=== PATIENT | female | born 1980 | race Caucasian/White ===

== ENCOUNTER 2017-04-17 08:42 | Emergency (ER) | payer OTHER ==
[~2017-04-17] VITALS: Ht 162.6 cm; Wt 104.0 kg
[~2017-04-17 08:42] MED LIST: BEN25 PO; CALC-67 PO; FER325 PO; FOLI0.4T2 PO; PRED20TA PO; PRENAT PO; TRIA15CR55 TOP
[2017-04-17 08:45] VITALS: Ht 162.6 cm; Wt 104.0 kg
[2017-04-17] MEDS ORDERED: ONDANSETRON (ODT) 4 MG TAB ODT STA (09:05)
[2017-04-17] MEDS ORDERED: FAMOTIDINE 20 MG TAB PO ONE (09:30)
[2017-04-17 09:34] LABS: BASOPHIL # 0.1 10^3/ul (0.0-0.1); BASOPHILS % 0.7 % (0.0-2.0); EOSINOPHILS # 0.1 10^3/ul (0.0-0.5); EOSINOPHILS % 1.9 % (0.0-7.0); HEMATOCRIT 35.8 % (37.0-47.0); LYMPHOCYTES % 26.7 % (15.0-51.0); MEAN CORPUSCULAR HEMOGLOBIN 30.2 pg (29.0-33.0); MEAN CORPUSCULAR HGB CONC 33.5 g/dl (32.0-37.0); MEAN CORPUSCULAR VOLUME 90.2 fl (82.0-101.0); MEAN PLATELET VOLUME 9.8 fl (7.4-10.4); MONOCYTE # 0.5 10^3/ul (0.3-0.9); MONOCYTES % 6.1 % (0.0-11.0); NEUTROPHILS % 64.3 % (39.0-77.0); PLATELET COUNT 275 10^3/UL (140-415); RED BLOOD COUNT 3.97 10^6/ul (4.20-5.40); RED CELL DISTRIBUTION WIDTH 11.9 % (11.5-14.5); WHITE BLOOD COUNT 7.3 10^3/ul (4.8-10.8)
--- NOTE | 2017-04-17 09:40 | ERD ---
ER Documentation Chief Complaint Date/Time DATE: 04/17/17 TIME: 09:38 Chief Complaint abd pain , positive preg test @ home , lmp 01/15/17 HPI 36-year-old female with a history one miscarriage and one with last measured. Around January 15 comes in with epigastric abdominal pain, nausea over the last 2 days. She describes it as mostly upper abdominal discomfort that radiates diffusely on the left and right. She has an appointment to see her OB who is Dr. Corley on April 29, 2017 and has not had an ultrasound yet. Patient has not had any vaginal bleeding or pelvic pain. She denies fevers, chills, chest pain or shortness of breath. ROS All systems reviewed and are negative except as per history of present illness. Medications Home Meds Active Scripts Multivit/Min/Fol Ac/Iron/Pren* ( S*) 1 Tab Tab, 1 TAB PO DAILY, #30 TAB Prov:DEV PHILLIPS PA-C 04/17/17 Famotidine* (Pepcid*) 20 Mg Tablet, 20 MG PO BID for 15 Days, TAB Prov:DEV PHILLIPS PA-C 04/17/17 Nitrofurantoin Monohyd Macrocr* (Macrobid*) 100 Mg Capsr, 100 MG PO BID for 7 Days, CAP Prov:DEV PHILLIPS PA-C 04/17/17 Diphenhydramine Hcl* (Benadryl*) 25 Mg Cap, 25 MG PO Q6, #20 CAP Prov:CHERRI CHAUDHARY MD 03/17/16 Prednisone* (Prednisone*) 20 Mg Tab, 40 MG PO DAILY, #4 TAB Prov:CHERRI CHAUDHARY MD 03/17/16 Triamcinolone Acetonide (Triamcinolone Acetonide) 0.1% - 15 Gm Cream.gm., 1 APPLIC TOP QID for 7 Days, #1 TUB Prov:CHERRI CHAUDHARY MD 03/17/16 Reported Medications Calcium Carbonate-Vitamin D3 (Calcium 500 + D Caplet) 1 Tab Tablet, 1 TAB PO DAILY, TAB 10/25/15 Folic Acid* (Folic Acid*) 0.4 Mg Tablet, 0.4 MG PO DAILY, TAB 12/26/14 Ferrous Sulfate* (Ferrous Sulfate*) 325 Mg Tabec, 325 MG PO BID, TAB 12/12/14 Multivit/Min/Fol Ac/Iron/Pren* ( S*) 1 Tab Tab, 1 TAB PO DAILY, TAB 10/29/14 Allergies Allergies: Coded Allergies: No Known Allergies (Verified Allergy, Mild, 12/26/14) PMhx/Soc Anesthesia Reaction: No Hx Neurological Disorder: No Hx Respiratory Disorders: Yes (ASTHMA) Hx Cardiac Disorders: No Hx Psychiatric Problems: No Hx Miscellaneous Medical Probl: No Hx Alcohol Use: No Hx Substance Use: No Hx Tobacco Use: No Physical Exam Vitals Vital Signs Date Time Temp Pulse Resp B/P Pulse Ox O2 Delivery O2 Flow Rate FiO2 04/17/17 11:01 98.3 76 16 126/74 99 Room Air 04/17/17 08:45 98.1 88 18 121/71 99 Physical Exam General obese female, no distress HEENT: Head is normocephalic, atraumatic. No scleral icterus. Neck: Supple. Nontender. Lungs: Clear to auscultation. Normal air movement. Heart: Regular rate and rhythm. S1 and S2 are normal. No murmurs, gallops, or rubs. Abdomen: Soft, mild mid abdominal discomfort with palpation, nondistended. Bowel sounds are normoactive. No rebounding, guarding or masses there is no McBurney's tenderness negative Subramanian sign Extremities: No clubbing or cyanosis. Normal pulses. Moving extremities x 4. No weakness. Neurologic: Alert and oriented 3. No focal deficits. Skin: Normal turgor. No rash or lesions. Result Diagram: 04/17/1791604/17/17 0917 Results 24 hrs Laboratory Tests Test 04/17/17 09:09 04/17/17 09:17 Urine Color YELLOW Urine Clarity SLIGHTLY CLOUDY Urine pH 5.0 Urine Specific [place] 1.018 Urine Ketones NEGATIVEmg/dL Urine Nitrite POSITIVEmg/dL Urine Bilirubin NEGATIVEmg/dL Urine Urobilinogen NEGATIVEmg/dL Urine Leukocyte Esterase 1+Audrey/ul Urine Microscopic RBC 1/HPF Urine Microscopic WBC 6/HPF Urine Squamous Epithelial Cells FEW/HPF Urine Bacteria FEW/HPF Urine Mucus FEW/HPF Urine Hemoglobin NEGATIVEmg/dL Urine Glucose 3+mg/dL Urine Total Protein NEGATIVEmg/dl White Blood Count 7.310^3/ul Red Blood Count 3.9710^6/ul Hemoglobin 12.0g/dl Hematocrit 35.8% Mean Corpuscular Volume 90.2fl Mean Corpuscular Hemoglobin 30.2pg Mean Corpuscular Hemoglobin Concent 33.5g/dl Red Cell Distribution Width 11.9% Platelet Count 66149^3/UL Mean Platelet Volume 9.8fl Neutrophils % 64.3% Lymphocytes % 26.7% Monocytes % 6.1% Eosinophils % 1.9% Basophils % 0.7% Nucleated Red Blood Cells % 0.0/100WBC Neutrophils # (Manual) 510^3/ul Lymphocytes # 2.010^3/ul Monocytes # 0.510^3/ul Eosinophils # 0.110^3/ul Basophils # 0.110^3/ul Nucleated Red Blood Cells # 0.010^3/ul Sodium Level 136mmol/L Potassium Level 3.8mmol/L Chloride Level 102mmol/L Carbon Dioxide Level 23mmol/L Anion Gap 15 Blood Urea Nitrogen 9mg/dl Creatinine 0.59mg/dl Glucose Level 144mg/dl Calcium Level 9.4mg/dl Total Bilirubin 0.4mg/dl Direct Bilirubin 0.00mg/dl Indirect Bilirubin 0.4mg/dl Aspartate Amino Transf (AST/SGOT) 79IU/L Alanine Aminotransferase (ALT/SGPT) 109IU/L Alkaline Phosphatase 104IU/L Total Protein 7.8g/dl Albumin 4.0g/dl Globulin 3.80g/dl Albumin/Globulin Ratio 1.05 Lipase 85U/L Beta HCG, Quantitative 88866.0mIU/ml Current Medications Medications (Trade) Dose Ordered Sig/Deepak Route PRN Reason Start Time Stop Time Status Last Admin Dose Admin Famotidine (Pepcid) 20 mg ONCE ONCE PO 04/17/17 09:30 04/17/17 09:31 DC 04/17/17 09:16 Ondansetron HCl (Zofran Odt) 4 mg ONCE STAT ODT 04/17/17 09:05 04/17/17 09:07 DC 04/17/17 09:16 DIAGNOSTIC IMAGING REPORT Patient: JIMENA DUMONT : 1980 Age: 36 Sex: F MR #: [id number] DOS: 04/17/17 0903 Ordering MD: DEV PHILLIPS PA-C Location: E Room/Bed: PROCEDURE: OBSTETRICAL ULTRASOUND WITH ENDOVAGINAL IMAGES CLINICAL INDICATION: Abdominal pain TECHNIQUE: Multiple sonographic images of the pelvis were obtained utilizing a transabdominal and endovaginal technique. The images were reviewed on a PACS workstation. COMPARISON: None. LMP: 01/14/2017 FINDINGS: There is a single live intrauterine with heart rate of 158 beats per minute, mean sac diameter of 3.46 cm, and crown-rump length of 2.54 cm which is consistent with a gestational age of 9 weeks, 0 days . The estimated date of delivery by ultrasound is 11/20/2017 . The estimated gestational age by LMP is 13 weeks, 2 days . The estimated date of delivery by LMP is 10/21/2017 . There is a hypoechoic lesion adjacent to the gestational sac measuring up to 9 mm consistent with a subchorionic hemorrhage. The right ovary measures 3.5 x 1.9 x 2.6 cm. The left ovary measures 3.7 x 1.3 x 1.7 cm. There is normal vascular flow in both ovaries. No significant ovarian lesions are seen. No significant pelvic free fluid is identified. IMPRESSION: Single live intrauterine consistent with a gestational age of 9 weeks , 0 days . The estimated date of delivery is a 11/20/2017 . Dating by ultrasound is not consistent with dating by LMP. 9 mm subchorionic hemorrhage. RPTAT: EE Physician Willie Date Time Electronically viewed and signed by Physician Willie on 04/17/2017 09:55 RA/ CC: DEV PHILLIPS PA-C Procedures/MDM ED course: She was given Pepcid 20 mg by mouth and Zofran 4 mg ODT. MDM: 36-year-old female who is , patient is presenting with mid abdominal pain that goes to the epigastric region. She was given Pepcid and Zofran with improvement of her symptoms. She is currently at 13 weeks, single live intrauterine seen on ultrasound as well as a 9 mm and urinalysis shows nitrite positive urine given her should be given on antibiotics to treat her urinary tract infection. White blood cell count is normal, she does have mildly elevated AST and ALT it is likely from fatty liver disease, she states that she has been overweight and not eating a healthy diet. She does not have any Subramanian sign, and her other labs look normal, I doubt choledocholithiasis. She is otherwise well appearing, her abdominal examination is benign. She was advised to eat a low-fat diet, continue the antibiotics and recheck with her OB next week. Departure Diagnosis: Primary Impression: Second trimester Additional Impressions: Subchorionic hemorrhage in second trimester UTI (urinary tract infection) Condition: DEV Chin PA-C Apr 17, 2017 09:40
[2017-04-17 09:49] LABS: ADD UMIC YES; UR ASCORBIC ACID NEGATIVE (NEGATIVE); UR BACTERIA FEW /HPF (NONE SEEN); UR BILIRUBIN (Dip) NEGATIVE (NEGATIVE); UR BLOOD (Dip) NEGATIVE (NEGATIVE); UR CLARITY SLIGHTLY CLOUDY (CLEAR); UR COLOR YELLOW (YELLOW); UR GLUCOSE (Dip) 3+ mg/dL (NEGATIVE); UR KETONES (Dip) NEGATIVE (NEGATIVE); UR LEUKOCYTE ESTERASE (Dip) 1+ Leu/ul (NEGATIVE); UR MUCUS FEW /HPF (NONE SEEN); UR NITRITE (Dip) POSITIVE (NEGATIVE); UR RBC 1 /HPF (0-5); UR SPECIFIC GRAVITY (Dip) 1.018 (1.003-1.030); UR SQUAMOUS EPITHELIAL CELL FEW /HPF (FEW); UR TOTAL PROTEIN (Dip) NEGATIVE (NEGATIVE); UR UROBILINOGEN (Dip) NEGATIVE (NEGATIVE)
--- NOTE | 2017-04-17 09:55 | RADRPT ---
PROCEDURE: OBSTETRICAL ULTRASOUND WITH ENDOVAGINAL IMAGES CLINICAL INDICATION: Abdominal pain TECHNIQUE: Multiple sonographic images of the pelvis were obtained utilizing a transabdominal and endovaginal technique. The images were reviewed on a PACS workstation. COMPARISON: None. LMP: 01/14/2017 FINDINGS: There is a single live intrauterine with heart rate of 158 beats per minute, mean sa c diameter of 3.46 cm, and crown-rump length of 2.54 cm which is consistent with a gestational age of 9 weeks, 0 days . The estimated date of delivery by ultrasound is 11/20/2017 . The estimated gestational age by LMP is 13 weeks, 2 days . The estimated date of delivery by LMP is 10/21/2017 . There is a hypoechoic lesion adjacent to the gestational sac measuring up to 9 mm consistent with a subchorionic hemorrhage. The right ovary measures 3.5 x 1.9 x 2.6 cm. The left ovary measures 3.7 x 1.3 x 1.7 cm. There is no rmal vascular flow in both ovaries. No significant ovarian lesions are seen. No significant pelvic free fluid is identified. IMPRESSION: Single live intrauterine consistent with a gestational age of 9 weeks, 0 days . The estimated date of delivery is a 11/20/2017 . Dating by ultrasound is not consistent with dating by LMP. 9 mm subchorionic hemorrhage. RPTAT: EE Physician Willie Date Time Electronically viewed and signed by Physician Willie on 04/17/2017 09:55 /
[2017-04-17] MEDS ORDERED: FAMO-96 PO (10:04)
[2017-04-17] MEDS ORDERED: NITR-58 PO (10:04)
[2017-04-17 10:10] LABS: ALBUMIN/GLOBULIN RATIO 1.05; BILIRUBIN,INDIRECT 0.4 mg/dl (0-1.1); BILIRUBIN,TOTAL 0.4 mg/dl (0.2-1.3); CALCIUM 9.4 mg/dl (8.4-10.2); CREATININE 0.59 mg/dl (0.44-1.00); POTASSIUM 3.8 mmol/L (3.5-5.1); TOTAL PROTEIN 7.8 g/dl (6.1-8.1)
[2017-04-17] MEDS ORDERED: PRENAT PO (11:00)
[2017-04-17 11:01] VITALS: BP 126/74; PULSE 76; RESP 16; TEMP 98.3
== END 2017-04-17 11:02 | disposition home or self-care (01) ==
LOC: FTE 08:42
DX: O34.81 Maternal care for other abnormalities of pelvic organs, first trimester (principal); J45.909 Unspecified asthma, uncomplicated; R10.10 Upper abdominal pain, unspecified; O23.41 Unspecified infection of urinary tract in pregnancy, first trimester; O99.511 Diseases of the respiratory system complicating pregnancy, first trimester; R10.2 Pelvic and perineal pain; Z3A.09 9 weeks gestation of pregnancy
CPT/HCPCS: 36415; 76801; 80053; 81001; 83690; 84702; 85025; 86900; 86901; Z7502; Z7610

== ENCOUNTER 2017-04-25 10:12 | Emergency (ER) | payer OTHER ==
[~2017-04-25] VITALS: Ht 172.7 cm; Wt 102.5 kg
[~2017-04-25 10:12] MED LIST changes: +FAMO-96 PO; +NITR-58 PO
[2017-04-25 10:17] VITALS: Ht 172.7 cm; Wt 102.5 kg
[2017-04-25] MEDS ORDERED: ACETAMINOPHEN 325 MG TAB PO STA (11:15)
[2017-04-25 12:10] LABS: BASOPHILS % 0.5 % (0.0-2.0); EOSINOPHILS # 0.2 10^3/ul (0.0-0.5); EOSINOPHILS % 2.1 % (0.0-7.0); HEMOGLOBIN 11.2 g/dl (12.0-16.0); LYMPHOCYTES # 2.4 10^3/ul (0.8-2.9); LYMPHOCYTES % 28.3 % (15.0-51.0); MEAN CORPUSCULAR HEMOGLOBIN 29.5 pg (29.0-33.0); MEAN CORPUSCULAR HGB CONC 32.9 g/dl (32.0-37.0); MEAN CORPUSCULAR VOLUME 89.5 fl (82.0-101.0); MEAN PLATELET VOLUME 9.8 fl (7.4-10.4); MONOCYTE # 0.5 10^3/ul (0.3-0.9); MONOCYTES % 5.6 % (0.0-11.0); PLATELET COUNT 257 10^3/UL (140-415); RED CELL DISTRIBUTION WIDTH 12.3 % (11.5-14.5); WHITE BLOOD COUNT 8.6 10^3/ul (4.8-10.8)
[2017-04-25 12:14] LABS: ADD UMIC YES; UR ASCORBIC ACID 20 mg/dL (NEGATIVE); UR BACTERIA FEW /HPF (NONE SEEN); UR BILIRUBIN (Dip) NEGATIVE (NEGATIVE); UR BLOOD (Dip) 2+ mg/dL (NEGATIVE); UR CLARITY SLIGHTLY CLOUDY (CLEAR); UR COLOR AMBER (YELLOW); UR GLUCOSE (Dip) NEGATIVE (NEGATIVE); UR KETONES (Dip) TRACE mg/dL (NEGATIVE); UR LEUKOCYTE ESTERASE (Dip) NEGATIVE Leu/ul (NEGATIVE); UR MUCUS FEW /HPF (NONE SEEN); UR NITRITE (Dip) NEGATIVE (NEGATIVE); UR RBC 1 /HPF (0-5); UR SPECIFIC GRAVITY (Dip) 1.028 (1.003-1.030); UR SQUAMOUS EPITHELIAL CELL FEW /HPF (FEW); UR TOTAL PROTEIN (Dip) 1+ mg/dl (NEGATIVE); UR UROBILINOGEN (Dip) 1+ mg/dL (NEGATIVE)
--- NOTE | 2017-04-25 12:32 | RADRPT ---
PROCEDURE: US Obstetric less than 14 weeks. CLINICAL INDICATION: , vaginal bleeding TECHNIQUE: Transabdominal imaging of the pelvis was performed. Images are reviewed on a high-reso [employer] PACS workstation. COMPARISON: Ultrasound, 04/17/2017 FINDINGS: Single intrauterine gestation is identified. heart rate is 163 bpm. [place]-rump length = 3.07 cm. Gestational age is 10 weeks 0 days and MAURICE is 11/21/2017 by ultrasound criteria. Bilateral ovaries are not visualized. No adnexal mass or pelvic free fluid is seen. IMPRESSION: 1. Single live intrauterine with an estimated gestational age of 10 weeks 0 days by ultra sound criteria, as above. RPTAT: HDWR .Cesario Anderson MD, MD Date Time Electronically viewed and signed by .Cesario Anderson MD, on 04/25/2017 12:32 .R/
[2017-04-25 12:36] LABS: ALBUMIN 3.9 g/dl (3.3-4.9); BILIRUBIN,INDIRECT 1.1 mg/dl (0-1.1); BILIRUBIN,TOTAL 1.1 mg/dl (0.2-1.3); CREATININE 0.6 mg/dl (0.44-1.00); TOTAL PROTEIN 7.8 g/dl (6.1-8.1)
[2017-04-25 12:41] LABS: INR 0.92; PROTIME 12.4 Sec (12.2-14.2)
[2017-04-25 12:42] LABS: PARTIAL THROMBOPLASTIN TIME 27.1 Sec (25.0-35.0)
[2017-04-25] MEDS ORDERED: ACET325T33 PO (13:33)
--- NOTE | 2017-04-25 14:09 | ERA ---
ER Documentation Chief Complaint Date/Time DATE: 04/25/17 TIME: 13:59 Chief Complaint Complains of vag bleed and 12 weeks HPI 36-year-old female presented with a chief complaint of vaginal bleeding. Patient states that she is approximately 11 weeks . Denies pain, fever , dysuria, nausea, vomiting, diarrhea, vaginal discharge, foul odor, or identifiable patterns of symptoms. Patient has no other complaints and describes no other associated manifestations. Nursing notes have been reviewed and are consistent with history given. ROS All systems reviewed and are negative except as per history of present illness. Medications Home Meds Active Scripts Acetaminophen* (Tylenol*) 325 Mg Tablet, 1 TAB PO Q6 Y for PAIN AND OR ELEVATED TEMP, #20 TAB Prov:TORY JIMENEZ PA-C 04/25/17 Multivit/Min/Fol Ac/Iron/Pren* ( S*) 1 Tab Tab, 1 TAB PO DAILY, #30 TAB Prov:DEV PHILLIPS PA-C 04/17/17 Famotidine* (Pepcid*) 20 Mg Tablet, 20 MG PO BID for 15 Days, TAB Prov:DEV PHILLIPS PA-C 04/17/17 Nitrofurantoin Monohyd Macrocr* (Macrobid*) 100 Mg Capsr, 100 MG PO BID for 7 Days, CAP Prov:DEV PHILLIPS PA-C 04/17/17 Diphenhydramine Hcl* (Benadryl*) 25 Mg Cap, 25 MG PO Q6, #20 CAP Prov:CHERRI CHAUDHARY MD 03/17/16 Prednisone* (Prednisone*) 20 Mg Tab, 40 MG PO DAILY, #4 TAB Prov:CHERRI CHAUDHARY MD 03/17/16 Triamcinolone Acetonide (Triamcinolone Acetonide) 0.1% - 15 Gm Cream.gm., 1 APPLIC TOP QID for 7 Days, #1 TUB Prov:CHERRI CHAUDHARY MD 03/17/16 Reported Medications Calcium Carbonate-Vitamin D3 (Calcium 500 + D Caplet) 1 Tab Tablet, 1 TAB PO DAILY, TAB 10/25/15 Folic Acid* (Folic Acid*) 0.4 Mg Tablet, 0.4 MG PO DAILY, TAB 12/26/14 Ferrous Sulfate* (Ferrous Sulfate*) 325 Mg Tabec, 325 MG PO BID, TAB 12/12/14 Multivit/Min/Fol Ac/Iron/Pren* ( S*) 1 Tab Tab, 1 TAB PO DAILY, TAB 10/29/14 Allergies Allergies: Coded Allergies: No Known Allergies (Verified Allergy, Mild, 12/26/14) PMhx/Soc History of Surgery: No Anesthesia Reaction: No Hx Neurological Disorder: No Hx Respiratory Disorders: Yes (ASTHMA) Hx Cardiac Disorders: No Hx Psychiatric Problems: No Hx Miscellaneous Medical Probl: No Hx Alcohol Use: No Hx Substance Use: No Hx Tobacco Use: No Physical Exam Vitals Vital Signs Date Time Temp Pulse Resp B/P Pulse Ox O2 Delivery O2 Flow Rate FiO2 04/25/17 10:17 98.2 89 20 120/68 96 Physical Exam Const: Healthy-appearing. Well-nourished. Well-developed. No acute distress. Abd: Soft, non tender, non distended. No guarding, masses. Normal bowel sounds. No McBurney's point tenderness. Head: Normocephalic, Atraumatic. Eyes: Non-injected; No scleral erythema, discharge or foreign body. EOMI and ARMANI bilaterally. Ears: Normal External Ears, EACs clear, TM normal bilaterally without erythema. Nose: Normal nose without discharge, septal deviation, or sinus tenderness. Oral: No oral edema visualized. Mucous membranes moist and pink. Neck: No cervical lymphadenopathy, masses or goiter palpated. Trachea midline. Supple ~ No meningismus. Pulm: Good air movement in upper and lower respiratory tracts. No dyspnea, stridor, tripoding or drooling. Clear to auscultation bilaterally. Cardio: Regular rate and rhythm; No murmurs, gallops or rubs auscultated. No JVD grossly observed. Radial and posterior tibial pulses 2+ bilaterally. No cyanosis. Capillary refill less than 2 seconds. MS: Normal motor strength, normal tone with gross examination. Skin: No petechiae or rashes. No ulcer, induration, jaundice. Good turgor. Back: No midline, flank or CVA tenderness. Ext: No cyanosis, edema or palpable cord. Normal movement of all extremities grossly observed. Neur: Awake, alert and oriented x3. Neurovascularly intact bilaterally. Psych: Normal Mood and Affect. Result Diagram: 04/25/17 1144 04/25/17 1144 Results 24 hrs Laboratory Tests Test 04/25/17 11:44 04/25/17 11:45 White Blood Count 8.610^3/ul Red Blood Count 3.8010^6/ul Hemoglobin 11.2g/dl Hematocrit 34.0% Mean Corpuscular Volume 89.5fl Mean Corpuscular Hemoglobin 29.5pg Mean Corpuscular Hemoglobin Concent 32.9g/dl Red Cell Distribution Width 12.3% Platelet Count 56245^3/UL Mean Platelet Volume 9.8fl Neutrophils % 63.0% Lymphocytes % 28.3% Monocytes % 5.6% Eosinophils % 2.1% Basophils % 0.5% Nucleated Red Blood Cells % 0.0/100WBC Neutrophils # (Manual) 5.410^3/ul Lymphocytes # 2.410^3/ul Monocytes # 0.510^3/ul Eosinophils # 0.210^3/ul Basophils # 0.010^3/ul Nucleated Red Blood Cells # 0.010^3/ul Prothrombin Time 12.4Sec Prothrombin Time Ratio 1.0 INR International Normalized Ratio 0.92 Activated Partial Thromboplast Time 27.1Sec Sodium Level 137mmol/L Potassium Level 4.0mmol/L Chloride Level 105mmol/L Carbon Dioxide Level 22mmol/L Anion Gap 14 Blood Urea Nitrogen 8mg/dl Creatinine 0.60mg/dl Glucose Level 95mg/dl Calcium Level 9.0mg/dl Total Bilirubin 1.1mg/dl Direct Bilirubin 0.00mg/dl Indirect Bilirubin 1.1mg/dl Aspartate Amino Transf (AST/SGOT) 64IU/L Alanine Aminotransferase (ALT/SGPT) 75IU/L Alkaline Phosphatase 94IU/L Total Protein 7.8g/dl Albumin 3.9g/dl Globulin 3.90g/dl Albumin/Globulin Ratio 1.00 Beta HCG, Quantitative 18472.0mIU/ml Urine Color [place] Urine Clarity SLIGHTLY CLOUDY Urine pH 5.0 Urine Specific [place] 1.028 Urine Ketones TRACEmg/dL Urine Nitrite NEGATIVEmg/dL Urine Bilirubin NEGATIVEmg/dL Urine Urobilinogen 1+mg/dL Urine Leukocyte Esterase NEGATIVELeu/ul Urine Microscopic RBC 1/HPF Urine Microscopic WBC 2/HPF Urine Squamous Epithelial Cells FEW/HPF Urine Bacteria FEW/HPF Urine Mucus FEW/HPF Urine Hemoglobin 2+mg/dL Urine Glucose NEGATIVEmg/dL Urine Total Protein 1+mg/dl Current Medications Medications (Trade) Dose Ordered Sig/Deepak Route PRN Reason Start Time Stop Time Status Last Admin Dose Admin Acetaminophen (Tylenol Tab) 650 mg ONCE STAT PO 04/25/17 11:15 04/25/17 11:17 DC 04/25/17 11:23 Procedures/MDM 36-year-old female with a chief complaint of vaginal bleeding. 10 weeks . Patient has pain. Physical exam unremarkable. Laboratory and ultrasound results with the following: CBC unremarkable CMP: AST 64. ALT 75. Urinalysis: Protein 1+. Bacteria few. Mucus few. PT/PTT: WNL Ultrasound: 10 weeks. Unremarkable. At this time, I have little suspicion for , ectopic placenta previa, infection, blood vessel rupture, or PPROM. The current most likely diagnosis is vaginal bleeding in first trimester due to unknown etiology. I have spoke with the patient regarding their condition and future management. They have verbally responded that they understand their status and treatment plan. The patients vitals are stable, and their current condition is appropriate for discharge. The patient will be given discharge instructions with return precautions. Departure Diagnosis: Primary Impression: Vaginal bleeding Condition: Stable Referrals: RADHA FUNEZ (PCP) Additional Instructions: Follow up with your [facility] in 2 days. Be sure to take todays test results ( provided within this packet) with you to your appointment. If you do not have an [facility], a handout of locations with contact information will be provided to you. Follow all the recommendations we have previously discussed and the following written recommendations: If symptoms change or worsen, return to the emergency department immediately. Do not put anything in your vagina. Do not have sex, douche, or use tampons; these actions may increase your risk for infection and miscarriage. Rest as directed. Do not exercise or engage in strenuous activities; such activities may cause labor or miscarriage. If you have any further questions, ask before you leave the hospital, or contact the medical provider managing your . TORY JIMENEZ PA-C Apr 25, 2017 14:09
[2017-04-25 14:13] VITALS: BP 122/76; PULSE 75; RESP 18
== END 2017-04-25 14:13 | disposition home or self-care (01) ==
LOC: FTE 10:12
DX: O20.9 Hemorrhage in early pregnancy, unspecified (principal); J45.909 Unspecified asthma, uncomplicated; O99.511 Diseases of the respiratory system complicating pregnancy, first trimester; Z3A.10 10 weeks gestation of pregnancy
CPT/HCPCS: 36415; 76801; 80053; 81001; 84702; 85025; 85610; 85730; 86900; 86901; Z7502; Z7610

== ENCOUNTER 2017-05-01 15:05 | Emergency (ER) | payer OTHER ==
[~2017-05-01] VITALS: Ht 160 cm; Wt 104.5 kg
[~2017-05-01 15:05] MED LIST changes: +ACET325T33 PO
[2017-05-01 15:08] VITALS: Ht 160 cm; Wt 104.5 kg
--- NOTE | 2017-05-01 15:50 | ERD ---
ER Documentation Chief Complaint Date/Time DATE: 05/01/17 TIME: 15:49 Chief Complaint VAGINAL BLEEDING,10 WEEKS ,ABDOMINAL PAIN HPI 36-year-old female, comes in with vaginal bleeding, pelvic pain at approximately 10 weeks. She is with a history one miscarriage and one . She states she has light spotting, with intermittent clots passing with lower pelvic pain that is sharp. She has had 2 other ultrasounds, the last ultrasound was done on April 25 that showed a single live intrauterine at 10 weeks. She denies fevers or chills, chest pain, shortness of breath or dizziness. ROS All systems reviewed and are negative except as per history of present illness. Medications Home Meds Active Scripts Cephalexin* (Keflex*) 500 Mg Capsule, 500 MG PO TID for 5 Days, CAP Prov:DEV PHILLIPS PA-C 05/01/17 Acetaminophen* (Tylenol*) 325 Mg Tablet, 1 TAB PO Q6 Y for PAIN AND OR ELEVATED TEMP, #20 TAB Prov:TORY JIMENEZ PA-C 04/25/17 Multivit/Min/Fol Ac/Iron/Pren* ( S*) 1 Tab Tab, 1 TAB PO DAILY, #30 TAB Prov:DEV PHILLIPS PA-C 04/17/17 Famotidine* (Pepcid*) 20 Mg Tablet, 20 MG PO BID for 15 Days, TAB Prov:DEV PHILLIPS PA-C 04/17/17 Nitrofurantoin Monohyd Macrocr* (Macrobid*) 100 Mg Capsr, 100 MG PO BID for 7 Days, CAP Prov:DEV PHILLIPS PA-C 04/17/17 Diphenhydramine Hcl* (Benadryl*) 25 Mg Cap, 25 MG PO Q6, #20 CAP Prov:CHERRI CHAUDHARY MD 03/17/16 Prednisone* (Prednisone*) 20 Mg Tab, 40 MG PO DAILY, #4 TAB Prov:CHERRI CHAUDHARY MD 03/17/16 Triamcinolone Acetonide (Triamcinolone Acetonide) 0.1% - 15 Gm Cream.gm., 1 APPLIC TOP QID for 7 Days, #1 TUB Prov:CHERRI CHAUDHARY MD 03/17/16 Reported Medications Calcium Carbonate-Vitamin D3 (Calcium 500 + D Caplet) 1 Tab Tablet, 1 TAB PO DAILY, TAB 3/2/16 Folic Acid* (Folic Acid*) 0.4 Mg Tablet, 0.4 MG PO DAILY, TAB 12/26/14 Ferrous Sulfate* (Ferrous Sulfate*) 325 Mg Tabec, 325 MG PO BID, TAB 12/12/14 Multivit/Min/Fol Ac/Iron/Pren* ( S*) 1 Tab Tab, 1 TAB PO DAILY, TAB 10/29/14 Allergies Allergies: Coded Allergies: No Known Allergies (Verified Allergy, Mild, 12/26/14) PMhx/Soc History of Surgery: No Anesthesia Reaction: No Hx Neurological Disorder: No Hx Respiratory Disorders: Yes (ASTHMA) Hx Cardiac Disorders: No Hx Psychiatric Problems: No Hx Miscellaneous Medical Probl: No Hx Alcohol Use: No Hx Substance Use: No Hx Tobacco Use: No Physical Exam Vitals Vital Signs Date Time Temp Pulse Resp B/P Pulse Ox O2 Delivery O2 Flow Rate FiO2 05/01/17 15:08 98.1 86 18 130/72 98 Physical Exam General: Well-developed, well-nourished. The patient appears in no acute distress. HEENT: Head is normocephalic, atraumatic. No scleral icterus. Neck: Supple. Nontender. Lungs: Clear to auscultation. Normal air movement. Heart: Regular rate and rhythm. S1 and S2 are normal. No murmurs, gallops, or rubs. Abdomen: Soft, nontender, nondistended. Bowel sounds are normoactive. Extremities: No clubbing or cyanosis. Normal pulses. Moving extremities x 4. No weakness. Neurologic: Alert and oriented 3. No focal deficits. Skin: Normal turgor. No rash or lesions. Result Diagram: 05/01/17 1535 Results 24 hrs Laboratory Tests Test 05/01/17 15:35 05/01/17 15:55 White Blood Count 8.510^3/ul Red Blood Count 3.8510^6/ul Hemoglobin 11.4g/dl Hematocrit 34.5% Mean Corpuscular Volume 89.6fl Mean Corpuscular Hemoglobin 29.6pg Mean Corpuscular Hemoglobin Concent 33.0g/dl Red Cell Distribution Width 12.5% Platelet Count 92345^3/UL Mean Platelet Volume 9.6fl Neutrophils % 69.3% Lymphocytes % 22.9% Monocytes % 4.7% Eosinophils % 2.1% Basophils % 0.5% Nucleated Red Blood Cells % 0.0/100WBC Neutrophils # (Manual) 5.910^3/ul Lymphocytes # 2.010^3/ul Monocytes # 0.410^3/ul Eosinophils # 0.210^3/ul Basophils # 0.010^3/ul Nucleated Red Blood Cells # 0.010^3/ul Urine Color YELLOW Urine Clarity SLIGHTLY CLOUDY Urine pH 5.0 Urine Specific [place] 1.026 Urine Ketones NEGATIVEmg/dL Urine Nitrite NEGATIVEmg/dL Urine Bilirubin NEGATIVEmg/dL Urine Urobilinogen NEGATIVEmg/dL Urine Leukocyte Esterase TRACELeu/ul Urine Microscopic RBC 1/HPF Urine Microscopic WBC 3/HPF Urine Squamous Epithelial Cells FEW/HPF Urine Mucus FEW/HPF Urine Hemoglobin 2+mg/dL Urine Glucose NEGATIVEmg/dL Urine Total Protein 1+mg/dl DIAGNOSTIC IMAGING REPORT Patient: JIMENA DUMONT : 1980 Age: 36 Sex: F MR #: [id number] DOS: 05/01/17 1547 Ordering MD: DEV PHILLIPS PA-C Location: [facility] Room/Bed: PROCEDURE: US OB. CLINICAL INDICATION: Vaginal bleeding TECHNIQUE: Transabdominal views of the pelvis are available for review. COMPARISON: US PELVIS 04/25/2017 FINDINGS: There is a single intrauterine gestation with the crown-rump length measuring 3.7 cm, corresponding to a gestational age of 10 weeks and 4 days. The heart rate is noted at 176 bpm. The right ovary measures 3.7 x 2.8 x 2.5 cm. The left ovary was not seen. There is no free fluid. RPTAT: AA IMPRESSION: Single live intrauterine with an estimated gestational age of 10 weeks and 4 days, based on ultrasound measurements. MAURICE based on ultrasound measurements is 11/23/2017. .Sean Olivier MD, Date Time Electronically viewed and signed by .Sean Olivier MD, on 05/01/2017 16: 45 .S/ CC: DEV PHILLIPS PA-C Procedures/MDM ED course: Patient's previous EMR was reviewed, she is type and Rh O+. Medical decision makin-year-old female presents emergency department with vaginal bleeding, she is single live intrauterine at 10 weeks. Patient has pelvic pain, vaginal bleeding, this is her third visit emergency department with all essentially normal ultrasounds. She was given copies of her results and she has been asked to follow-up with OB. She is type and Rh+, she does not need RhoGam at this time. Patient continues to have trace leukocyte esterase with some several white blood cells coming of pelvic pain, she will be discharged home with Keflex for asymptomatic bacteriuria.She is hemodynamically stable, does not show any signs of ovarian torsion, endometritis, acute appendicitis, surgical and acute abdominal process per Departure Diagnosis: Primary Impression: Vaginal bleeding in patient at less than 20 weeks gestation Condition: Good DEV PHILLIPS PA-C May 01, 2017 15:50
[2017-05-01 16:07] LABS: BASOPHILS % 0.5 % (0.0-2.0); EOSINOPHILS # 0.2 10^3/ul (0.0-0.5); EOSINOPHILS % 2.1 % (0.0-7.0); HEMATOCRIT 34.5 % (37.0-47.0); HEMOGLOBIN 11.4 g/dl (12.0-16.0); LYMPHOCYTES % 22.9 % (15.0-51.0); MEAN CORPUSCULAR HEMOGLOBIN 29.6 pg (29.0-33.0); MEAN CORPUSCULAR VOLUME 89.6 fl (82.0-101.0); MEAN PLATELET VOLUME 9.6 fl (7.4-10.4); MONOCYTE # 0.4 10^3/ul (0.3-0.9); MONOCYTES % 4.7 % (0.0-11.0); NEUTROPHILS % 69.3 % (39.0-77.0); PLATELET COUNT 250 10^3/UL (140-415); RED BLOOD COUNT 3.85 10^6/ul (4.20-5.40); RED CELL DISTRIBUTION WIDTH 12.5 % (11.5-14.5); WHITE BLOOD COUNT 8.5 10^3/ul (4.8-10.8)
[2017-05-01 16:14] LABS: ADD UMIC YES; UR ASCORBIC ACID NEGATIVE (NEGATIVE); UR BILIRUBIN (Dip) NEGATIVE (NEGATIVE); UR BLOOD (Dip) 2+ mg/dL (NEGATIVE); UR CLARITY SLIGHTLY CLOUDY (CLEAR); UR COLOR YELLOW (YELLOW); UR GLUCOSE (Dip) NEGATIVE (NEGATIVE); UR KETONES (Dip) NEGATIVE (NEGATIVE); UR LEUKOCYTE ESTERASE (Dip) TRACE Leu/ul (NEGATIVE); UR MUCUS FEW /HPF (NONE SEEN); UR NITRITE (Dip) NEGATIVE (NEGATIVE); UR RBC 1 /HPF (0-5); UR SPECIFIC GRAVITY (Dip) 1.026 (1.003-1.030); UR SQUAMOUS EPITHELIAL CELL FEW /HPF (FEW); UR TOTAL PROTEIN (Dip) 1+ mg/dl (NEGATIVE); UR UROBILINOGEN (Dip) NEGATIVE (NEGATIVE)
--- NOTE | 2017-05-01 16:46 | RADRPT ---
PROCEDURE: US OB. CLINICAL INDICATION: Vaginal bleeding TECHNIQUE: Transabdominal views of the pelvis are available for review. COMPARISON: US PELVIS 04/25/2017 FINDINGS: There is a single intrauterine gestation with the crown-rump length measuring 3.7 cm, corresponding to a gestational age of 10 weeks and 4 days. The heart rate is noted at 176 bpm. The right ovary measures 3.7 x 2.8 x 2.5 cm. The left ovary was not seen. There is no free fluid. RPTAT: AA IMPRESSION: Single live intrauterine with an estimated gestational age of 10 weeks and 4 days, based o n ultrasound measurements. MAURICE based on ultrasound measurements is 11/23/2017. .Sean Olivier MD, MD Date Time Electronically viewed and signed by .Sean Olivier MD, on 05/01/2017 16:45 .S/
[2017-05-01] MEDS ORDERED: CEPH-443 PO (16:49)
== END 2017-05-01 16:56 | disposition home or self-care (01) ==
LOC: FTE 15:05
DX: O20.9 Hemorrhage in early pregnancy, unspecified (principal); R10.2 Pelvic and perineal pain; J45.909 Unspecified asthma, uncomplicated; O99.511 Diseases of the respiratory system complicating pregnancy, first trimester; Z3A.10 10 weeks gestation of pregnancy
CPT/HCPCS: 76801; 81001; 84702; 85025; Z7502

== ENCOUNTER 2017-06-27 22:42 | Emergency (ER) | payer SELFPAY ==
[~2017-06-27] VITALS: Ht 162.6 cm; Wt 108.2 kg
[~2017-06-27 22:42] MED LIST changes: +CEPH-443 PO
[2017-06-27 22:48] VITALS: Ht 162.6 cm; Wt 108.2 kg
== END 2017-06-28 00:30 | disposition left against medical advice (07) ==
LOC: FTE 22:42
DX: Z53.21 Procedure and treatment not carried out due to patient leaving prior to being seen by health care provider (principal)

== ENCOUNTER 2017-09-06 09:46 | Outpatient (CLI) | END 2017-09-06 17:19 | disposition home or self-care (01) ==

== ENCOUNTER 2017-09-20 08:59 | Outpatient (CLI) | END 2017-09-20 11:05 | disposition home or self-care (01) ==

== ENCOUNTER 2017-11-04 04:22 | Inpatient (IN) | END 2017-11-07 15:09 | disposition home or self-care (01) | DRG 766 ==

== ENCOUNTER 2018-03-19 18:17 | Emergency (ER) | END 2018-03-19 21:39 | disposition home or self-care (01) ==